=== PATIENT | female | born 1950 | race Hispanic/Latino ===

== ENCOUNTER 2017-11-20 18:52 | Inpatient (IN) | payer MEDICARE ==
[2017-11-20 18:52] VITALS: BMI 40.7
--- NOTE | 2017-11-20 19:34 | C.PDOC ---
History Of Present Illness 66 y/o female presents to the ED requesting detox from alcohol. Patient states her last drink was a couple of hours ago. Otherwise patient offers no physical complaints at this time. Denies any fever, chills, nausea, or vomiting. Time Seen by Provider: 11/20/17 19:33 Chief Complaint (Nursing): Substance Abuse History Per: Patient History/Exam Limitations: no limitations Onset/Duration Of Symptoms: Days Current Symptoms Are (Timing): Still Present Suicide/Self Injury Attempted (Context): None Modifying Factor(s): Alcohol Associated Symptoms: denies: Suicidal Thoughts, Suicidal Plan Involuntary Hold By: None Past Medical History Reviewed: Historical Data, Nursing Documentation, Vital Signs Vital Signs: Last Vital Signs Temp 98.5 F 11/20/17 19:21 Pulse 87 11/20/17 19:21 Resp 14 11/20/17 19:21 BP 117/76 11/20/17 19:21 Pulse Ox 97 11/20/17 19:21 - Medical History PMH: HTN, Hypercholesterolemia Family History: States: No Known Family Hx - Social History Hx Tobacco Use: Yes Hx Alcohol Use: Yes Hx Substance Use: No - Immunization History Hx Tetanus Toxoid Vaccination: No Hx Influenza Vaccination: Yes Hx Pneumococcal Vaccination: Yes Review Of Systems Constitutional: Negative for: Fever, Chills Gastrointestinal: Negative for: Nausea, Vomiting Musculoskeletal: Negative for: Other (tremors) Psych: Positive for: Other (alcohol abuse). Negative for: Withdrawal Physical Exam - Physical Exam Appears: Non-toxic, No Acute Distress Skin: Warm, Dry Head: Normacephalic Eye(s): bilateral: Normal Inspection Oral Mucosa: Moist Neck: Trachea Midline, Supple Chest: Symmetrical Cardiovascular: Rhythm Regular Respiratory: No Rales, No Rhonchi, No Wheezing Gastrointestinal/Abdominal: Soft, No Tenderness, No Distention Extremity: Bilateral: Atraumatic, Normal Color And Temperature, Normal ROM Pulses: Left Dorsalis Pedis: Normal, Right Dorsalis Pedis: Normal Neurological/Psych: Oriented x3 ED Course And Treatment - Laboratory Results Result Diagrams: 11/20/17 20:26 11/20/17 20:26 O2 Sat by Pulse Oximetry: 97 (RA) Pulse Ox Interpretation: Normal Progress Note: Blood work and urine sent for analysis. Pending crisis evaluation. Disposition Discussed With DrTyrone: Aubrey M Leonor Comment: accepted the pt on h is service and took over the care at 10:22 PM Doctor Will See Patient In The: Hospital Counseled Patient/Family Regarding: Studies Performed, Diagnosis - Disposition Disposition: HOSPITALIZED Disposition Time: 19:34 Condition: FAIR Forms: [facility] ([place]) - Clinical Impression Clinical Impression: Alcohol use disorder - Scribe Statement The provider has reviewed the documentation as recorded by the Scribe ([place]) Provider Attestation: All medical record entries made by the Scribe were at my direction and personally dictated by me. I have reviewed the chart and agree that the record accurately reflects my personal performance of the history, physical exam, medical decision making, and the department course for this patient. I have also personally directed, reviewed, and agree with the discharge instructions and disposition. Decision To Admit - Pt Status Changed To: Hospital Disposition Of: Inpatient - Admit Certification Admit to Inpatient:: After my assessment, the patient will require hospitalization for at least two midnights. This is because of the severity of symptoms shown, intensity of services needed, and/or the medical risk in this patient being treated as an outpatient. - InPatient: Physician Admission Certification: I certify that this patient requires 2 or more midnights of care for the following reason:: After my assessment, the patient will require hospitalization for at least two midnights. This is because of the severity of symptoms shown, intensity of services needed, and/or the medical risk in this patient being treated as an outpatient. - . Bed Request Type: Detox Admitting Physician: Aubrey Galvez Patient Diagnosis: Alcohol use disorder
[2017-11-20 20:35] LABS: BASO % 0.5 % (0.0-2.0); EOS % 0.7 % (0.0-4.0); HEMOGLOBIN 15.9 g/dL (11.0-16.0); LYMPH # 3.4 K/uL (1.0-4.3); LYMPH % 50.1 % (20.0-40.0); MEAN CELL VOLUME 98.6 fL (81.0-99.0); MEAN CORPUSCULAR HEMOGLOBIN 32.8 pg (27.0-31.0); MEAN CORPUSCULAR HGB CONC 33.3 g/dL (33.0-37.0); MEAN PLATELET VOLUME 8.1 fL (7.2-11.7); MONO # 0.6 K/uL (0.0-0.8); MONO % 9.5 % (0.0-10.0); NEUT # 2.6 K/uL (1.8-7.0); NEUT % 39.2 % (50.0-75.0); NRBC % 0.1 % (0.0-2.0); RBC 4.86 Mil/uL (3.80-5.20); RED CELL DISTRIBUTION WIDTH 14.1 % (11.5-14.5); WHITE BLOOD COUNT 6.8 K/uL (4.8-10.8)
[2017-11-20 20:45] LABS: URINE BACTERIA FEW (<OCC); URINE BILIRUBIN NEGATIVE (NEGATIVE); URINE BLOOD NEGATIVE (NEGATIVE); URINE CLARITY Hazy (Clear); URINE COLOR Yellow (YELLOW); URINE GLUCOSE (UA) NORMAL (Normal); URINE LEUKOCYTE ESTERASE NEG Leu/uL (Negative); URINE PROTEIN NEGATIVE (NEGATIVE); URINE UROBILINOGEN NORMAL mg/dL (0.2-1.0)
[2017-11-20 20:53] LABS: ALB/GLOB RATIO 1.4 (1.0-2.1); ALBUMIN 4.2 g/dL (3.5-5.0); ALT/SGPT 35 U/L (9-52); AST/SGOT 43 U/L (14-36); BLOOD UREA NITROGEN 10 mg/dL (7-17); CALCIUM 9.5 mg/dl (8.6-10.4); GFR NON-AFRICAN AMERICAN > 60
[2017-11-20 20:56] LABS: BARBITURATES, UR NEGATIVE (NEGATIVE); BENZODIAZEPINES, UR NEGATIVE (NEGATIVE); OPIATES, UR NEGATIVE (NEGATIVE); PHENCYCLIDINE, UR NEGATIVE (NEGATIVE)
[2017-11-21] MEDS: Multiple Vitamins Tab PO SCH (10:10)
[2017-11-21] MEDS ORDERED: Aluminum Hydroxide/Magnesium Hydroxide Susp (30 mL) PO PRN (10:25)
[2017-11-21] MEDS: Pantoprazole 20 mg EC Tab PO SCH (11:47)
--- NOTE | 2017-11-21 14:03 | PCM.PSYCH ---
Initial Psychiatric Evaluation - Initial Psychiatric Evaluation Type of Admission: Voluntary Legal Status: Capacity Chief Complaint (in patient's own words): "I need help to stop alcohol" History of Present Illness and Precipitating Events: Patient is a 66-year-old, female, with an adult son. She is retired and lives with her in [place]. Patient is here for detox from alcohol. Patient states that she has been drinking 2 bottles (750 mL each) of white wine every day for a year. Her last drink was around 2 pm yesterday. She reports that she was drinking socially before but she has been drinking larger amounts since last year. Patient denies using drugs. She states that she tried cocaine only 1x in her teenage years in 1960s. She reports smoking cigarettes ppd but denies smoking marijuana. She reports significant wdw sxs Patient reports that she feels depressed and anxious but denies any suicidal or homicidal ideation. She complains about stomach pain she had last night and diarrhea this morning. Patient denies trying detox or rehab before. She states that it is the first time she is getting treatment/help for her alcohol problem. She reports that she went to see Dr. Portillo for her depression and he guided her for detox. Patient states that she tried [facility] IOP 2 years ago but did not continue going there thinking her problem was not as severe as the other peoples problems in the pr ogram. She does not consider attending AA meetings because she finds them to be too mandaen. She is open to other treatments Psych hx: denies Medical hx: Neuropathy in lower legs, uses gabapentin for the pain Family hx: denies. Current Medications: Active Medications Generic Name Dose Route Start Last Admin Trade Name Freq PRN Reason Stop Dose Admin Al Hydrox/Mg Hydrox/Simethicone 30 ml 11/21/17 10:25 Maalox 30 Ml PO TID PRN Indigestion / Heartburn Chlordiazepoxide 25 mg 11/21/17 03:34 Librium PO Q4H PRN Alcohol Withdrawal Chlordiazepoxide 25 mg 11/21/17 10:24 11/21/17 11:50 Librium PO 11/26/17 05:59 25 mg Q6 SATISH Administration Taper Clonidine HCl 0.1 mg 11/21/17 03:34 Catapres PO Q4H PRN Symptoms of alcohol withdrawl Folic Acid 1 mg 11/21/17 10:00 11/21/17 10:10 Folic Acid PO 1 mg DAILY SATISH Administration Gabapentin 400 mg 11/21/17 14:00 11/21/17 13:56 Neurontin PO 400 mg TID SATISH Administration Ibuprofen 400 mg 11/21/17 03:36 Motrin Tab PO Q6 PRN Pain, moderate (4-7) Loperamide HCl 2 mg 11/21/17 10:25 Imodium PO Q8 PRN Diarrhea Multivitamins 1 tab 11/21/17 10:00 11/21/17 10:10 Hexavitamin PO 1 tab DAILY SATISH Administration Naltrexone HCl 50 mg 11/21/17 10:45 11/21/17 11:48 Revia PO 50 mg DAILY SATISH Administration Nicotine 1 patch 11/21/17 10:30 11/21/17 11:47 Nicoderm Cq TD 1 patch DAILY SATISH Administration Ondansetron HCl 4 mg 11/21/17 10:25 Zofran Tab PO Q8 PRN Nausea/Vomiting Pantoprazole Sodium 20 mg 11/21/17 10:30 11/21/17 11:47 Protonix Ec Tab PO 20 mg DAILY SATISH Administration Thiamine HCl 100 mg 11/21/17 10:00 11/21/17 10:10 Vitamin B1 Tab PO 100 mg DAILY SATISH Administration Trazodone HCl 50 mg 11/21/17 03:34 Desyrel PO HS PRN Insomnia Past Psychiatric History - Past Psychiatric History Previous Treatment History: Intensive Outpatient Pertinent Medical Hx (Current Medical&Sleep Prob, Allergies): Allergies Allergy/AdvReac Type Severity Reaction Status Date / Time ceftriaxone Allergy RASH Verified 11/20/17 19:27 clarithromycin Allergy RASH Verified 11/20/17 19:27 clindamycin Allergy RASH Verified 11/20/17 19:27 doxycycline Allergy RASH Verified 11/20/17 19:27 vancomycin Allergy RASH Verified 11/20/17 19:27 Penicillins AdvReac Unknown RASH Verified 11/20/17 19:27 Esomeprazole Magnesium [Nexium] 40 mg PO DAILY 08/25/15 Gabapentin [Neurontin] 300 mg PO TID 08/25/15 Ascorbate Calcium [Vitamin C] 500 mg PO DAILY 04/14/17 Atorvastatin [Lipitor] 10 mg PO DIN 04/14/17 Cholecalciferol (Vitamin D3) [Vitamin D3] 1,000 unit PO DAILY 04/14/17 Cyanocobalamin (Vitamin B-12) [Vitamin B-12] 2,500 mcg SL DAILY 04/14/17 Multivitamin 1 sgl PO DAILY 04/14/17 Review of Systems - Neurological Neurological: Tremor - Psychiatric Psychiatric: Abnormal Sleep Pattern, Anhedonia, Anxiety, Change in Appetite, Depression, Difficulty Concentrating, Mood Swings. absent: Hallucinations, Hopelessness, Paranoia, Suicidal Ideation Mental Status Examination - Personal Presentation Personal Presentation: Looks stated age - Affect Affect: Constricted - Motor Activity Motor Activity: Calm - Reliability in Providing Information Reliability in Providing Information: Good - Speech Speech: Organized - Mood Mood: Depressed, Anxious - Formal Thought Process Formal Thought Process: No Impairment - Cognitive Functions Orientation: Person, Place, Situation, Time Sensorium: Alert Attention/Concentration: Attentive Estimate of Intelligence: Average Judgement: Intact, as evidence by: Insight regarding need for hospitalization Memory: Recent intact, as evidence by: Ability to recall events of the day, Remote intact, as evidenced by: Abilit to recall sig. life events - Risk Risk: Withdrawal, Diminished functioning - Strength & Assets Inventory Strength & Assets Inventory: Cooperative - Limitations Limitations: Living alone DSM 5 DX - DSM 5 DSM 5 Diagnosis: Alcohol withdrawal Alcohol use d/o - severe Major depressive d/o - single, severe COSME - Recommended/Plan of Treatment Treatment Recommendations and Plan of Treatment: Taper with librium Gabapentin for augmentation Lexapro for depression and COSME Naltrexone for cravings As needed medications All risks, benefits and alternatives of the meds discussed, and the pt agreed and understood. Attend groups and activities Supportive therapy and psychoeducation VT for abstinence CBT for relapse prevention Encourage MAT Refer to rehab or IOP, and self-help groups Teach healthy lifestyle methods, i.e. diet, exercise, meditation Smoking cessation with VT Nicotine patch if needed 34 min Projected ELOS: 5 days Prognosis: good w treatment
--- NOTE | 2017-11-21 14:11 | PCM.BM ---
<Ngoc Zabala - Last Filed: 11/21/17 14:09> Treatment Plan Problems - Problems identified on initial assessmt potential for alcohol withdrawals Date Initiated: 11/21/17 Assessment reference: NA Status: Active Treatment assets and liabiliti Patient Assests: adapts well, cooperative, ADL independent, negotiates basic needs Patient Liabilities: substance abuse, medical problems - Milieu Protocol Maintain good personal hygiene: daily Encourage regular showers, daily Remind patient to perform daily oral care, daily Assist patient to perform ADL's Conduct patient checks and document Observation sheet: Q15 minutes Maintain personal safety: every shift Educate patient to report safety concerns to staff, every shift Monitor environment for contraband/sharps Medication safety: Monitor for expected outcome, potential side effects: every shift, Assess barriers to learning: every shift, Assess readiness for medication education: every shift <Tarah Austin - Last Filed: 11/22/17 08:55> - Diagnosis (1) Alcohol use disorder Status: Acute Interventions: 11/22/17 08:54 * Assess 7x/week regarding severity of withdrawal * Educate regarding risks, benefits, side effects and alternatives of medications * Use Motivational Interviewing for abstinence * Use CBT for relapse prevention * Medication management for withdrawal symptoms * Encourage medication assisted treatment * (2) Major depressive single episode severe with psychosis Status: Acute Interventions: 11/22/17 08:54 * Assess/adjust medications daily and /or as needed * See patient on an individual basis 7x/week to assess symptoms of depression * Monitor for side effects & effectiveness of medications *
[2017-11-22] MEDS: Pantoprazole 20 mg EC Tab PO SCH (09:40)
[2017-11-22] MEDS: Multiple Vitamins Tab PO SCH (09:41)
--- NOTE | 2017-11-22 14:22 | PCM.PYCHPN ---
Psychiatric Progress Note - Psychiatric Progress Note Patient seen today, length of contact: 16 min Patient Chief Complaint: "I am anxious" Problems Identified/Issues Discussed: The pt is seen, chart reviewed, case discussed with staff. The pt is compliant with medications and reports no side-effects. Symptoms are improving but needs more time to stabilize. Pt attends groups and activities. Support given, psycho-education provided. After care discussed. Medication Change: Yes (detox changes daily) Medical Record Reviewed: Yes Mental Status Examination - Cognitive Function Orientation: Person, Place, Situation, Time Memory: Intact Attention: WNL Concentration: WNL Association: WNL Fund of Knowledge: WNL - Mood Mood: Depressed, Anxious - Affect Affect: Constricted - Speech Speech: Appropriate - Formal Thought Process Formal Thought Process: No Impairment - Suicidal Ideation Suicidal Ideation: No - Homicidal Ideation Homicidal Ideation: No Goal/Treatment Plan - Goal/Treatment Plan Need for Continued Stay: Discharge may exacerbated symptoms, Severe functional impairment Progress Toward Problem(s) and Goals/Treatment Plan: Taper with librium Gabapentin for augmentation Lexapro for depression and COSME Naltrexone for cravings As needed medications All risks, benefits and alternatives of the meds discussed, and the pt agreed and understood. Attend groups and activities Supportive therapy and psychoeducation [place] for abstinence CBT for relapse prevention Encourage MAT Refer to rehab or IOP, and self-help groups Teach healthy lifestyle methods, i.e. diet, exercise, meditation Smoking cessation with [place] Nicotine patch if needed
[2017-11-23] MEDS: Multiple Vitamins Tab PO SCH (10:32)
[2017-11-23] MEDS: Pantoprazole 20 mg EC Tab PO SCH (10:32)
--- NOTE | 2017-11-23 18:01 | PCM.PYCHPN ---
Psychiatric Progress Note - Psychiatric Progress Note Patient seen today, length of contact: 15 minutes Patient Chief Complaint: I'm feeling little dizzy. Problems Identified/Issues Discussed: Patient seen, chart reviewed, case discussed with the staff. Issues related to illness and treatment were discussed with the patient and staff. Reported compliant with treatment with no adverse affects. Tolerating treatment very well. Patient reported feeling little dizzy. Vital signs were within normal limit. Some medications put on hold. Continued observation. Later patient felt much better. Calm and cooperative. Awake, alert and oriented 3. No psychomotor activity, good eye contact, memory intact. Aftercare discussed with the patient. Denied any delusions, auditory or visual hallucinations, suicidal ideations or homicidal ideations at the time of evaluation. Medical Problems: Neuropathy Diagnostic Results: Reviewed DSM 5 Symptoms Update: Some improvement with treatment Medication Change: No Medical Record Reviewed: Yes Mental Status Examination - Cognitive Function Orientation: Person, Place, Situation, Time Memory: Intact Attention: WNL Concentration: WNL Association: WNL Fund of Knowledge: [facility] Decription of patient's judgement and insights: Fair - Mood Mood: Anxious - Affect Affect: Other (Appropriate) - Speech Speech: Appropriate - Formal Thought Process Formal Thought Process: No Impairment Psychotic Thoughts and Behaviors: None - Suicidal Ideation Suicidal Ideation: No - Homicidal Ideation Homicidal Ideation: No Goal/Treatment Plan - Goal/Treatment Plan Need for Continued Stay: Remain at risks for inpatient hospitalization, Discharge may exacerbated symptoms, Severe functional impairment Progress Toward Problem(s) and Goals/Treatment Plan: Patient/staff education. Supportive therapy. CBT for relapse prevention. MA for abstinence. Continue treatment as before. With hold of some medications temporarily. Patient will go to [facility] for follow-up care after discharge from the hospital. Estimated Date of D/C: 11/25/17 - Smoking Cessation Smoking Cessation Initiated: Yes
[2017-11-24] MEDS: Pantoprazole 20 mg EC Tab PO SCH (10:09)
[2017-11-24] MEDS: Multiple Vitamins Tab PO SCH (10:09)
[2017-11-24 16:34] VITALS: RESP 18
--- NOTE | 2017-11-24 18:23 | PCM.PYCHPN ---
Psychiatric Progress Note - Psychiatric Progress Note Patient seen today, length of contact: 15 minutes Patient Chief Complaint: I'm feeling better today, no dizziness. Problems Identified/Issues Discussed: Patient seen, chart reviewed, case discussed with the staff. Issues related to illness and treatment were discussed with the patient and staff. Reported compliant with treatment with no adverse affects. Tolerating treatment very well. Patient reported feeling better, no dizziness, Calm and cooperative. Awake, alert and oriented 3. No psychomotor activity, good eye contact, memory intact. Aftercare discussed with the patient. Denied any delusions, auditory or visual hallucinations, suicidal ideations or homicidal ideations at the time of evaluation. Medical Problems: Neuropathy Diagnostic Results: Reviewed DSM 5 Symptoms Update: Improving with treatment. Medication Change: No Medical Record Reviewed: Yes Mental Status Examination - Cognitive Function Orientation: Person, Place, Situation, Time Memory: Intact Attention: WNL Concentration: WNL Association: WN Fund of Knowledge: [facility] Decription of patient's judgement and insights: Fair - Mood Mood: Anxious (Much less than before) - Affect Affect: Other (Appropriate) - Speech Speech: Appropriate - Formal Thought Process Formal Thought Process: No Impairment Psychotic Thoughts and Behaviors: None - Suicidal Ideation Suicidal Ideation: No - Homicidal Ideation Homicidal Ideation: No Goal/Treatment Plan - Goal/Treatment Plan Need for Continued Stay: Remain at risks for inpatient hospitalization, Discharge may exacerbated symptoms, Severe functional impairment Progress Toward Problem(s) and Goals/Treatment Plan: Patient/staff education. Supportive therapy. CBT for relapse prevention. [place] for abstinence. Continue treatment as before. Patient will go to [facility] for follow-up care after discharge from the hospital. Estimated Date of D/C: 11/25/17 - Smoking Cessation Smoking Cessation Initiated: Yes
[2017-11-25 06:39] VITALS: O2SAT 96
[2017-11-25] MEDS: Pantoprazole 20 mg EC Tab PO SCH (09:34)
[2017-11-25] MEDS: Multiple Vitamins Tab PO SCH (09:34)
[2017-11-25 10:12] VITALS: BP 139/78; PULSE 74; TEMP 98.3
== END 2017-11-25 10:10 | disposition home or self-care (01) | DRG 895 ==
LOC: C.ER 18:52 → C.7D 22:21
PROC: HZ2ZZZZ Detoxification Services for Substance Abuse Treatment (ICD-10-PCS; principal; 2017-11-20)
PROC: HZ59ZZZ Individual Psychotherapy for Substance Abuse Treatment, Supportive (ICD-10-PCS; 2017-11-20)
PROC: GZ3ZZZZ Medication Management (ICD-10-PCS; 2017-11-20)
PROC: HZ80ZZZ Medication Management for Substance Abuse Treatment, Nicotine Replacement (ICD-10-PCS; 2017-11-20)
PROC: HZ46ZZZ Group Counseling for Substance Abuse Treatment, Psychoeducation (ICD-10-PCS; 2017-11-20)
PROC: GZHZZZZ Group Psychotherapy (ICD-10-PCS; 2017-11-20)
PROC: GZ56ZZZ Individual Psychotherapy, Supportive (ICD-10-PCS; 2017-11-20)
DX: F10.230 Alcohol dependence with withdrawal, uncomplicated (principal); F32.2 Major depressive disorder, single episode, severe without psychotic features; F41.1 Generalized anxiety disorder; F17.210 Nicotine dependence, cigarettes, uncomplicated; G62.9 Polyneuropathy, unspecified; E78.00 Pure hypercholesterolemia, unspecified; I10 Essential (primary) hypertension